=== PATIENT | male | born 1935 | race Caucasian/White ===

== ENCOUNTER 2016-06-17 07:37 | Day surgery (SDC) | payer OTHER, MEDICARE ==
[~2016-06-17] VITALS: Ht 185.4 cm; Wt 95.3 kg
[2016-06-17] MEDS ORDERED: CEFAZOLIN SOD 1 GM in D5W 50 ML IV ONE (08:00)
[2016-06-17 08:07] VITALS: O2SAT 97
[2016-06-17] MEDS ORDERED: COCAINE 4% SOLUTION TP ONE (09:14)
[2016-06-17] MEDS ORDERED: LR 1,000 ML IV SCH ×2 (11:08→11:12)
[2016-06-17] MEDS ORDERED: ONDANSETRON HCL 4 MG/2 ML VIAL IVP PRN ×2 (11:15)
[2016-06-17] MEDS ORDERED: ACETAMINOPHEN/CODEINE 300 MG-30 MG TABLET PO PRN (11:15)
[2016-06-17] MEDS ORDERED: NALBUPHINE HCL 10 MG/ML AMP IVP PRN (11:15)
[2016-06-17] MEDS ORDERED: NALOXONE HCL 0.4 MG/ML AMP (NARCAN) IVP PRN (11:15)
[2016-06-17] MEDS ORDERED: fentaNYL CITRATE/PF 100 MCG/2 ML AMP IVP PRN (11:15)
[2016-06-17] MEDS ORDERED: DIPHENHYDRAMINE INJ 50 MG/ML VIAL IVP PRN (11:15)
[2016-06-17] MEDS ORDERED: ePHEDrine sulfate 50 MG/ML VIAL IVP PRN (11:15)
[2016-06-17] MEDS ORDERED: ACETAMINOPHEN/CODEINE 300 MG-30 MG TABLET ONE (12:46)
[2016-06-17 13:13] VITALS: BP 146/83; PULSE 87; RESP 16
[2016-06-17] MEDS ORDERED: PROPOFOL 200MG/ 20ML VIAL (DIPRIVAN) IV ONE (14:00)
[2016-06-17] MEDS ORDERED: MIDAZOLAM HCL 5 MG/5 ML VIAL ONE (14:00)
[2016-06-17] MEDS ORDERED: GLYCOPYRROLATE 0.2 MG/ML VIAL ONE (14:00)
[2016-06-17] MEDS ORDERED: fentaNYL CITRATE/PF 100 MCG/2 ML AMP ONE (14:00)
[2016-06-17] MEDS ORDERED: ROCURONIUM BROMIDE 10 MG/ML (ZEMURON) ONE (14:00)
[2016-06-17] MEDS ORDERED: LR 1,000 ML IV.SOLN IV ONE (14:00)
[2016-06-17] MEDS ORDERED: METOCLOPRAMIDE HCL 10 MG/2 ML VIAL ONE (14:00)
[2016-06-17] MEDS ORDERED: SEVOFLURANE 15 MIN GAS INH ONE (14:00)
[2016-06-17] MEDS ORDERED: NS IRRIG SOLN 1000 ML IR ONE (14:00)
== END 2016-06-17 17:30 | disposition home or self-care (01) ==
LOC: SDS 07:37 → SMU 07:38 → SDS 17:30
PROVIDERS: ATTEND Otolaryngology
DX: J34.2 Deviated nasal septum (principal); J32.2 Chronic ethmoidal sinusitis; J32.0 Chronic maxillary sinusitis; J34.89 Other specified disorders of nose and nasal sinuses; J43.9 Emphysema, unspecified; J98.4 Other disorders of lung; I10 Essential (primary) hypertension; R06.02 Shortness of breath
CPT/HCPCS: 30520; 30999; 31240; 31254; 31267; 87070; 87075; 87186; 88300; 88305; 88311; A4649; J0690; J2250; J2704; J2765; J3010; J3490; J7060; J7120; 88304